=== PATIENT | male | born 1990 | race African-American/Black ===

== ENCOUNTER 2017-10-17 08:32 | Emergency (ER) | payer MEDICAID ==
[~2017-10-17] VITALS: Ht 188 cm; Wt 111.1 kg
[2017-10-17 08:37] VITALS: BP_SYST 145
[2017-10-17] MEDS ORDERED: KETOROLAC TROMETHAMINE 60 MG/2 ML VIAL IM ONE (09:15)
[2017-10-17 10:43] VITALS: BP_SYST 140
== END 2017-10-17 10:43 | disposition home or self-care (01) ==
LOC: SED 08:32
DX: M54.5 Low back pain (principal); R03.0 Elevated blood-pressure reading, without diagnosis of hypertension
CPT/HCPCS: 72100; 96372; 99284; J1885

== ENCOUNTER 2018-05-01 12:14 | Emergency (ER) | payer MEDICAID ==
[~2018-05-01] VITALS: Ht 188 cm; Wt 108.9 kg
[2018-05-01 12:33] VITALS: BP_SYST 133
[2018-05-01 13:18] LABS: BASOPHILS # (AUTO) 0.1 K/uL (0.0-0.2); BASOPHILS % (AUTO) 1.2 % (0.0-2.0); EOSINOPHILS # (AUTO) 0.2 K/uL (0.0-0.4); EOSINOPHILS % (AUTO) 2.9 % (0.0-4.0); HEMATOCRIT 42.6 % (36-54); HEMOGLOBIN 14.3 g/dL (14.0-18.0); LYMPHOCYTES # (AUTO) 2.5 K/uL (1.0-5.5); LYMPHOCYTES % (AUTO) 34.8 % (20.5-51.5); MEAN CORPUSCULAR HEMOGLOBIN 32 pg (27-31); MEAN CORPUSCULAR HGB CONC 34 % (32-36); MEAN CORPUSCULAR VOLUME 96 fL (79.0-98.0); MONOCYTES # (AUTO) 0.7 K/uL (0.0-1.0); NEUTROPHILS # (AUTO) 3.8 K/uL (1.8-7.7); NEUTROPHILS % (AUTO) 52.1 % (40.0-70.0); PLATELET COUNT (AUTO) 229 K/uL (130-430); RED BLOOD CELL COUNT(AUTO) 4.45 MIL/uL (4.2-6.2); RED CELL DISTRIBUTION WIDTH 11.3 % (9.0-15.0); WHITE BLOOD COUNT (AUTO) 7.3 K/uL (4.8-10.8)
--- NOTE | 2018-05-01 13:29 | NUR ---
Bar with Britney at [facility] who states that he can come to the station or call when he is done, declined to dispatch unit.
[2018-05-01 13:30] LABS: CALCIUM 9.5 mg/dL (8.4-11.0); CREATININE 1.14 mg/dL (0.55-1.30); POTASSIUM 3.7 mmol/L (3.5-5.1)
--- NOTE | 2018-05-01 13:32 | NUR ---
Patient to ER [facility] to [facility] for evaluation. Side rails up. Report given to Elroy PONCE.
[2018-05-01 13:35] LABS: ALBUMIN 4.2 g/dL (3.4-4.8); TOTAL BILIRUBIN 0.6 mg/dL (0.0-1.0)
[2018-05-01] MEDS ORDERED: SULFAMETHOXAZOLE/TRIMETHOPR DS 1 TABLET PO ONE (13:45)
[2018-05-01] MEDS ORDERED: IBUPROFEN 800 MG TABLET PO ONE (13:45)
[2018-05-01] MEDS ORDERED: BACITRACIN 1 GM OINT TP ONE (13:45)
[2018-05-01] MEDS ORDERED: CEPHALEXIN 500 MG CAPSULE PO ONE (13:45)
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
--- NOTE | 2018-05-01 13:48 | NUR ---
Medicated per DIESEL MECHANIC orders. Pt tolerated well
[2018-05-01 14:28] VITALS: BP_SYST 127
--- NOTE | 2018-05-01 14:30 | NUR ---
Patient given written and verbal discharge instructions and verbalizes understanding. ER COMPUTER NETWORK SPECIALIST discussed with patient the results and treatment provided. Patient in stable condition. ID arm band removed. Rx of keflex, bacitracin, motrin, bactrim DS given. Patient educated on pain management and to follow up with PMD. Pain Scale 3/10. Opportunity for questions provided and answered.
== END 2018-05-01 14:28 | disposition home or self-care (01) ==
LOC: SED 12:14
DX: S43.52XA Sprain of left acromioclavicular joint, initial encounter (principal); S69.92XA Unspecified injury of left wrist, hand and finger(s), initial encounter; R03.0 Elevated blood-pressure reading, without diagnosis of hypertension; Y04.0XXA Assault by unarmed brawl or fight, initial encounter; Y93.67 Activity, basketball; Y92.89 Other specified places as the place of occurrence of the external cause; Y99.8 Other external cause status
CPT/HCPCS: 36415; 73030; 80053; 83605; 85025; 87040-TC; 99285

== ENCOUNTER 2018-05-09 09:57 | Emergency (ER) | payer MEDICAID ==
[~2018-05-09] VITALS: Ht 188 cm; Wt 111.1 kg
[2018-05-09 10:05] VITALS: BP_SYST 138
[2018-05-09 11:08] VITALS: BP_SYST 138
== END 2018-05-09 11:08 | disposition home or self-care (01) ==
LOC: SED 09:57
DX: S60.222D Contusion of left hand, subsequent encounter (principal); R03.0 Elevated blood-pressure reading, without diagnosis of hypertension; Y08.89XD Assault by other specified means, subsequent encounter; Y93.67 Activity, basketball; Y92.89 Other specified places as the place of occurrence of the external cause; Y99.8 Other external cause status
CPT/HCPCS: 99281